=== PATIENT | female | born 1955 | race American Indian/Alaskan Native ===

== ENCOUNTER 2017-02-01 15:18 | Emergency (ER) | payer MEDICARE ==
[2017-02-01 16:09] LABS: Basophils % (Auto) 0.3 % (0.0-1.8); Eosinophils % (Auto) 0.5 % (0.0-4.3); Hematocrit 41.2 % (30.3-42.9); Hemoglobin 13.8 gm/dl (10.1-14.3); Mean Corpuscular HGB Conc 33 % (30-34); Mean Corpuscular Hemoglobin 32 pg (28-32); Mean Corpuscular Volume 95 fl (79-97); Platelet Count 261 K/mm3 (140-440); Red Blood Count 4.35 M/mm3 (3.65-5.03); Red Cell Distribution Width 13.7 % (13.2-15.2); White Blood Count 7.5 K/mm3 (4.5-11.0)
[2017-02-01 16:24] LABS: Creatine Kinase MB 1.7 ng/mL (0.0-4.0)
[2017-02-01 16:27] LABS: Alanine Aminotransferase 22 units/L (7-56); Albumin 4.4 g/dL (3.9-5); Albumin/Globulin Ratio 1.3 %; Alkaline Phosphatase 62 units/L (35-129); Anion Gap 18 mmol/L; Blood Urea Nitrogen 9 mg/dL (7-17); Calcium 9.7 mg/dL (8.4-10.2); Carbon Dioxide 25 mmol/L (22-30); Chloride 100.5 mmol/L (98-107); Creatine Kinase 127 units/L (30-135); Glucose 111 mg/dL (65-100); Lipase 28 units/L (13-60); Potassium 3.7 mmol/L (3.6-5.0); Sodium 140 mmol/L (137-145); Total Protein 7.8 g/dL (6.3-8.2)
[2017-02-01 17:08] LABS: Bilirubin,Urine NEG (Negative); Blood,Urine NEG (Negative); Ketones,Urine NEG (Negative); Leukocyte Esterase,Urine NEG (Negative); Mucus,Urine FEW /HPF; Nitrite,Urine NEG (Negative); Protein,Urine <15 mg/dL mg/dL (Negative); Urobilinogen,Urine < 2.0 mg/dL (<2.0)
[2017-02-01 20:37] LABS: Creatine Kinase MB 1.7 ng/mL (0.0-4.0)
[2017-02-01 20:38] LABS: Creatine Kinase 139 units/L (30-135)
[2017-02-01 22:40] VITALS: BP 183/88
--- NOTE | 2017-02-01 22:48 | XRay Report ---
FINAL REPORT PROCEDURE: XR CHEST ROUTINE 2V TECHNIQUE: PA and lateral chest radiographs were obtained. CPT 81348 HISTORY: sob/chest pain COMPARISON: No prior studies are available for comparison. FINDINGS: Heart: Normal. Mediastinum/Vessels: Normal. Lungs/Pleural space: Normal. Bony thorax: No acute osseous abnormality. Degenerative change. Other: IMPRESSION: No acute cardiopulmonary disease.
--- NOTE | 2017-02-01 23:28 | Emergency Department Report ---
HPI - General Chief Complaint: Abdominal Pain Time Seen by Provider: 02/01/17 23:15 - HPI HPI: 61-year-old female with a history of GERD presents to the ED complaining of epigastric bloating and pain in the past 2 weeks. Patient states pain was thought to days ago. Patient admits mild nausea and one episode of vomiting yesterday. Patient describes intermittent pain and states it's worse and when she lays down. Patient states she is unable to lay flat after she eats as she has acid to her throat. ED Past Medical Hx - Past Medical History Hx Hypertension: Yes (on Amlodipine and HCTZ) Hx GERD: Yes Hx Arthritis: Yes Hx Asthma: Yes (SEASONAL ) Additional medical history: fibro-myalgia - Surgical History Hx Cholecystectomy: Yes Hx Appendectomy: Yes (1971) - Social History Smoking Status: Never Smoker Substance Use Type: Alcohol - Medications Home Medications: Home Medications Medication Instructions Recorded Confirmed Last Taken Type Albuterol Sulfate [Albuterol 0.63% 1 spray INHALATION PRN PRN 03/01/14 05/06/15 1 Month Ago History NEBS] 1 puff Beclomethasone Dipropionat(Nf) 2 puff INHALATION DAILY 03/01/14 05/06/15 1 Month Ago History [Qvar 40MCG] 2 puff Loratadine [Claritin] 10 mg PO DAILY 11/04/14 05/06/15 1 Day Ago History 10 mg Aspirin [Aspirin BABY CHEW TAB] 81 mg PO QDAY #30 tab.chew 07/21/16 Unknown Rx Hydrochlorothiazide [HCTZ] 25 mg PO DAILY #30 tablet 07/21/16 Unknown Rx Ranolazine ER [Ranexa ER] 500 mg PO BID #60 tablet 07/21/16 Unknown Rx Simvastatin [Zocor TAB] 40 mg PO QHS #60 tablet 07/21/16 Unknown Rx amLODIPine [Norvasc] 10 mg PO DAILY #30 tab 07/21/16 Unknown Rx Pantoprazole [Protonix TAB] 20 mg PO QDAY #30 tablet. 02/02/17 Unknown Rx Ranitidine HCl [Heartburn Relief] 150 mg PO DAILY #30 tablet 02/02/17 Unknown Rx ED Review of Systems ROS: Stated complaint: ABD PAIN/SOB Other details as noted in HPI Constitutional: denies: chills, fever Eyes: denies: eye pain, eye discharge, vision change ENT: denies: ear pain, throat pain Respiratory: denies: cough, shortness of breath, wheezing Cardiovascular: denies: chest pain, palpitations Endocrine: no symptoms reported Gastrointestinal: abdominal pain (epigastric). denies: nausea, vomiting, diarrhea, constipation, hematemesis, hematochezia Genitourinary: denies: urgency, dysuria, discharge Musculoskeletal: denies: back pain, joint swelling, arthralgia Skin: denies: rash, lesions Neurological: denies: headache, weakness, paresthesias Psychiatric: denies: anxiety, depression Hematological/Lymphatic: denies: easy bleeding, easy bruising Physical Exam - Physical Exam Vital Signs: Vital Signs 02/01/17 02/01/17 15:29 22:39 Temperature 98 F 97.9 F Pulse Rate 72 54 L Respiratory 20 16 Rate Blood Pressure 198/104 Blood Pressure 183/88 [Left] O2 Sat by Pulse 99 99 Oximetry Physical Exam: GENERAL: Alert and oriented x3, no apparent distress, Normal Gait, atraumatic. HEAD: Head is normocephalic and a-traumatic. EYES: Extra ocular muscles are intact. Pupils are equal, round, and reactive to light and accommodation. EARS: symetrical, atraumatic, non tender, ear canal clear and moderate cerumen, tympanic membrance non inflamed. gross auditory nml bilaterally. NOSE: Nose symetrical, Nontender,Nares appeared normal. MOUTH:Mouth is well hydrated and without lesions. Tonsils nonerythematous or swollen, Uvula midline, Tongue not elevated. Mucous membranes are moist. Posterior pharynx clear, no exudate or lesions. Patent airways. NECK: Supple. Non edematous, No carotid bruits. No lymphadenopathy or thyromegaly. No C-spine tenderness LUNGS: Symetrical with respiration, No wheezing, no rales or crackles, CTAB. HEART: S1, S2 present, regular rate and rhythm without murmur, no rubs, no gallops. ABDOMEN: No organomegaly was noted,Positive bowel sounds, soft, and non- distended. . All tenderness with palpation of the epigastric region. NonTender to palpation on all other Quadrants, NO CVA tenderness. SKIN: Warm and dry, No lesions, No ulceration or induration present. ED Course Vital Signs 02/01/17 02/01/17 15:29 22:39 Temperature 98 F 97.9 F Pulse Rate 72 54 L Respiratory 20 16 Rate Blood Pressure 198/104 Blood Pressure 183/88 [Left] O2 Sat by Pulse 99 99 Oximetry ED Medical Decision Making - Lab Data Result diagrams: 02/01/17 15:40 02/01/17 15:40 - Medical Decision Making 61-year-old female presents with acid reflux flareup ED course: CBC,'s CMP, urinalysis, all ordered. All labs within normal limits. Cardiac enzymes negative. EKG normal sinus rhythm moderate voltage criteria for LVH. Discussed all findings with patient. Discussed follow-up with rn documentation for repeat EKG and assessment. Discussed to follow up with her [employer] Att[employer] Dr. Jovel. Discussed with patient her symptoms and need to take medications as prescribed. Discussed abstain from acid reach foods such as tomatoes and [place] Vital signs are normal she will take blood pressure medication upon returning home. Patient is in no acute distress. Critical care attestation.: If time is entered above; I have spent that time in minutes in the direct care of this critically ill patient, excluding procedure time. ED Disposition Clinical Impression: Acid reflux disease Qualifiers: Esophagitis presence: without esophagitis Qualified Code(s): K21.9 - Gastro- esophageal reflux disease without esophagitis Disposition: DISCHARGED TO HOME OR SELFCARE Is pt being admited?: No Does the pt Need Aspirin: No Condition: Stable Instructions: Diet for Ulcers and Gastritis (ED), Gastroesophageal Reflux Disease (ED), Abdominal Pain (ED) Additional Instructions: Follow-up with primary care physician. Taking medication as prescribed. Absent from acid which foods. For worsening symptoms return to ED. Prescriptions: Pantoprazole [Protonix TAB] 20 mg PO QDAY #30 tablet. Ranitidine HCl [Heartburn Relief] 150 mg PO DAILY #30 tablet Referrals: KHARI MARIANO NP-C [Primary Care Provider] - 3-5 Days Forms: Work/School Release Form(ED) Time of Disposition: 00:06
[2017-02-02] MEDS ORDERED: PEPCID PO ONE (00:04)
== END 2017-02-02 01:00 | disposition home or self-care (01) ==
LOC: ED 15:18
DX: K21.9 Gastro-esophageal reflux disease without esophagitis (principal); I10 Essential (primary) hypertension
CPT/HCPCS: 36415; 71020; 80053; 81001; 82550; 82553; 83690; 84484; 85025; 93005; 93010; 99284

== ENCOUNTER 2017-12-10 15:10 | Emergency (ER) | payer MEDICARE ==
--- NOTE | 2017-12-10 17:35 | Emergency Department Report ---
Chief Complaint: Dizziness Stated Complaint: HEADACHE Time Seen by Provider: 12/10/17 17:07 - HPI History of Present Illness: Patient is a 62-year-old [place] female who is been noncompliant last several weeks with her blood pressure medicines who is presenting with dizziness. Patient states that she has felt a vertigo like symptoms where she feels like the room is spinning with nausea and headache. His been present for approximately 3 days. Patient also states that she feels ataxic and uncoordinated when she walks as follows several times with no injury. - ROS Review of Systems: All systems are negative except for elements in HPI - Exam Vital Signs: Vital Signs 12/10/17 15:14 Temperature 97.8 F Pulse Rate 68 Blood Pressure 178/65 O2 Sat by Pulse 97 Oximetry Brief physical exam shows that the patient has equal strength in the arms or legs clear voice intact cranial nerves there is no pronator drift. Gait was not assessed. MSE screening note: Focused history and physical exam performed. Due to findings the following was ordered: ED Medical Decision Making - Medical Decision Making Patient be moved to the main ED for further evaluation of posterior stroke ED Disposition for MSE Condition: Stable Referrals: KHARI MARIANO NP-C [Primary Care Provider] - 3-5 Days - Assessment Assessment Interval: Baseline - Level of Consciousness 1a. Level of Consciousness: alert - LOC Questions 1b. LOC Questions: answers correctly - LOC Command 1c. LOC Commands: performs tasks correctly - Best Gaze 2. Best Gaze: normal - Visual 3. Visual: no visual loss - Facial Palsy 4. Facial Palsy: normal symmetrical movement - Motor Arm 5b. Motor Arm Right: no drift 5a. Motor Arm Left: no drift - Motor Leg 6a. Motor Leg Left: no drift 6b. Motor Leg Right: no drift - Limb Ataxia 7. Limb Ataxia: absent - Sensory 8. Sensory: normal - Best Language 9. Best Language: no aphasia - Dysarthria 10. Dysarthria: normal - Extinction and Inattention 11. Extinction/Inattention: no abnormality - Scoring Total Score: 0 Stroke Severity: No Stroke Symptoms
[2017-12-10 17:58] LABS: Basophils % (Auto) 0.5 % (0.0-1.8); Eosinophils # (Auto) 0.1 K/mm3 (0.0-0.4); Eosinophils % (Auto) 0.9 % (0.0-4.3); Hemoglobin 14.3 gm/dl (10.1-14.3); Lymphocytes # (Auto) 2.2 K/mm3 (1.2-5.4); Mean Corpuscular HGB Conc 34 % (30-34); Mean Corpuscular Hemoglobin 32 pg (28-32); Mean Corpuscular Volume 95 fl (79-97); Monocytes # (Auto) 0.6 K/mm3 (0.0-0.8); Monocytes % (Auto) 9.2 % (0.0-7.3); Platelet Count 270 K/mm3 (140-440); Red Blood Count 4.44 M/mm3 (3.65-5.03); Red Cell Distribution Width 13.4 % (13.2-15.2)
[2017-12-10 18:07] LABS: INR 0.86 (0.87-1.13)
[2017-12-10 18:08] LABS: Partial Thromboplastin Time 27.2 Sec. (24.2-36.6); Thrombin Time 16.5 Sec. (15.1-19.6)
[2017-12-10 18:13] LABS: Creatine Kinase MB 1.1 ng/mL (0.0-4.0)
[2017-12-10 18:15] LABS: BUN/Creatinine Ratio 15; Blood Urea Nitrogen 9 mg/dL (7-17); Calcium 9.5 mg/dL (8.4-10.2); Hemolysis Index 9
--- NOTE | 2017-12-10 20:35 | Cat Scan Report ---
FINAL REPORT PROCEDURE: CT head without contrast. TECHNIQUE: Computerized tomography of the head was performed without contrast material. HISTORY: Stroke symptoms. COMPARISON: CT head 11/18/2015. FINDINGS: The ventricles are normal in size. The lang matter and white matter appear normal. There are no mass lesions. There is no intracranial hemorrhage. The calvarium appears intact. The mastoid air cells and visualized paranasal sinuses are clear. IMPRESSION: Normal study.
--- NOTE | 2017-12-10 21:00 | Cat Scan Report ---
FINAL REPORT PROCEDURE: CT angiogram head with contrast. TECHNIQUE: Computerized tomographic angiography of the head was performed after the IV injection of iodinated nonionic contrast including image processing. The image data was postprocessed using 2-dimensional multiplanar reformatted (MPR) and 3-dimensional (MIP and/or volume rendered) techniques. HISTORY: Stroke symptoms. COMPARISON: No prior studies are available for comparison. FINDINGS: Both distal internal carotid arteries are patent. Both anterior cerebral arteries are patent. The anterior communicating artery is patent. Both middle cerebral arteries are patent. The posterior communicating arteries are not visible. Both distal vertebral arteries are patent. The posterior inferior cerebellar arteries are not visible. The basilar artery is patent. Both anterior inferior cerebellar arteries are large and probably supply both the [place]. Both superior cerebellar and both posterior cerebral arteries are patent. There are no signs of aneurysm disease. There is no evidence of a vasculitis. The ventricles are normal in size. There are no mass lesions. There are no signs of abnormal contrast enhancement. The calvarium appears intact. IMPRESSION: Normal study.
[2017-12-10 21:30] VITALS: BP 166/78
[2017-12-10] MEDS ORDERED: ATIVAN IV ONE (22:56)
--- NOTE | 2017-12-11 00:15 | Cat Scan Report ---
FINAL REPORT EXAM: CT ANGIO NECK HISTORY: stroke sx TECHNIQUE: A CT angiogram was obtained of the neck vessels following the intravenous injection of 100 cc of Omnipaque 350. MIP sagittal coronal reconstructions were reviewed. FINDINGS: Both common carotid arteries are widely patent with normal bifurcation into the internal and external carotid arteries bilaterally. There is minimal calcified plaque in both proximal internal carotid arteries. Both vertebral arteries are widely patent also. There is no evidence of arterial thrombosis or dissection. The lung apices are clear. There is no evidence of adenopathy. The thyroid gland reveals several low-attenuation foci bilaterally. The airway appears normal. The skeletal structures reveal arthritic changes in the cervical spine. IMPRESSION: No evidence of arterial stenosis, thrombosis or dissection as described. No acute process identified in the neck.
--- NOTE | 2017-12-11 00:29 | Emergency Department Report ---
ED Dizziness HPI - General Chief Complaint: Dizziness Stated Complaint: HEADACHE Time Seen by Provider: 12/10/17 17:07 Source: patient Mode of arrival: Ambulatory Limitations: No Limitations - History of Present Illness Initial Comments: Patient was seen in fast track for dizzy spells she presents to the main ER blood pressure is elevated 173 systolic she states she's been noncompliant with her other medicine. She is relatingsome dizzy spells which are described as room spinning no loss consciousness no falls no head injury no neck pain or back pain or chest pain no abdominal pain no speech or visual complaints here for evaluation of vertigo. An elevated blood pressure. Patient ambulates in the room without difficulty no ataxia is appreciated she does have some horizontal nystagmus she was evaluated for vertigo MD Complaint: dizziness, other (vertigo) -: Gradual Description: "room spinning" Severity: mild, moderate Worsens With: movement, position - Related Data Home Medications Medication Instructions Recorded Confirmed Last Taken Albuterol Sulfate [Albuterol 0.63% 1 spray INHALATION PRN PRN 03/01/14 05/06/15 1 Month Ago NEBS] ~06/19/16 1 puff Beclomethasone Dipropionat(Nf) 2 puff INHALATION DAILY 03/01/14 05/06/15 1 Month Ago [Qvar 40MCG] ~06/19/16 2 puff Loratadine [Claritin] 10 mg PO DAILY 11/04/14 05/06/15 1 Day Ago ~07/18/16 10 mg Previous Rx's Medication Instructions Recorded Last Taken Type Aspirin [Aspirin BABY CHEW TAB] 81 mg PO QDAY #30 tab.chew 07/21/16 Unknown Rx Hydrochlorothiazide [HCTZ] 25 mg PO DAILY #30 tablet 07/21/16 Unknown Rx Ranolazine ER [Ranexa ER] 500 mg PO BID #60 tablet 07/21/16 Unknown Rx Simvastatin [Zocor TAB] 40 mg PO QHS #60 tablet 07/21/16 Unknown Rx amLODIPine [Norvasc] 10 mg PO DAILY #30 tab 07/21/16 Unknown Rx Pantoprazole [Protonix TAB] 20 mg PO QDAY #30 tablet. 02/02/17 Unknown Rx Ranitidine HCl [Heartburn Relief] 150 mg PO DAILY #30 tablet 02/02/17 Unknown Rx Hydrochlorothiazide [Hctz] 12.5 mg PO QDAY #15 capsule 12/11/17 Unknown Rx Meclizine [Antivert] 25 mg PO TID PRN #15 tablet 12/11/17 Unknown Rx Allergies Allergy/AdvReac Type Severity Reaction Status Date / Time No Known Allergies Allergy Verified 11/18/13 16:36 ED Review of Systems ROS: Stated complaint: HEADACHE Other details as noted in HPI Comment: All other systems reviewed and negative Constitutional: denies: diaphoresis, fever, malaise Eyes: denies: eye discharge, vision change ENT: denies: dental pain, hearing loss, epistaxis Respiratory: denies: cough, orthopnea, shortness of breath, SOB with exertion, SOB at rest, stridor Cardiovascular: denies: chest pain, palpitations, dyspnea on exertion, orthopnea , edema, syncope, paroxysmal nocturnal dyspnea Endocrine: denies: excessive sweating, flushing Gastrointestinal: denies: abdominal pain, nausea, vomiting, diarrhea, constipation, hematemesis, melena, hematochezia Genitourinary: denies: dysuria, hematuria, discharge, abnormal menses, dyspareunia Musculoskeletal: denies: joint swelling, arthralgia Skin: denies: change in color, change in hair/nails, pruritus Neurological: vertigo. denies: headache, weakness, numbness, paresthesias, confusion, abnormal gait Psychiatric: denies: auditory hallucinations, visual hallucinations Hematological/Lymphatic: denies: easy bruising, swollen glands ED Past Medical Hx - Past Medical History Hx Hypertension: Yes (on Amlodipine and HCTZ) Hx GERD: Yes Hx Arthritis: Yes Hx Asthma: Yes (SEASONAL ) Additional medical history: fibro-myalgia - Surgical History Hx Cholecystectomy: Yes Hx Appendectomy: Yes (1971) - Social History Smoking Status: Never Smoker Substance Use Type: None - Medications Home Medications: Home Medications Medication Instructions Recorded Confirmed Last Taken Type Albuterol Sulfate [Albuterol 0.63% 1 spray INHALATION PRN PRN 03/01/14 05/06/15 1 Month Ago History NEBS] ~06/19/16 1 puff Beclomethasone Dipropionat(Nf) 2 puff INHALATION DAILY 03/01/14 05/06/15 1 Month Ago History [Qvar 40MCG] ~06/19/16 2 puff Loratadine [Claritin] 10 mg PO DAILY 11/04/14 05/06/15 1 Day Ago History ~07/18/16 10 mg Aspirin [Aspirin BABY CHEW TAB] 81 mg PO QDAY #30 tab.chew 07/21/16 Unknown Rx Hydrochlorothiazide [HCTZ] 25 mg PO DAILY #30 tablet 07/21/16 Unknown Rx Ranolazine ER [Ranexa ER] 500 mg PO BID #60 tablet 07/21/16 Unknown Rx Simvastatin [Zocor TAB] 40 mg PO QHS #60 tablet 07/21/16 Unknown Rx amLODIPine [Norvasc] 10 mg PO DAILY #30 tab 07/21/16 Unknown Rx Pantoprazole [Protonix TAB] 20 mg PO QDAY #30 tablet. 02/02/17 Unknown Rx Ranitidine HCl [Heartburn Relief] 150 mg PO DAILY #30 tablet 02/02/17 Unknown Rx Hydrochlorothiazide [Hctz] 12.5 mg PO QDAY #15 capsule 12/11/17 Unknown Rx Meclizine [Antivert] 25 mg PO TID PRN #15 tablet 12/11/17 Unknown Rx ED Physical Exam - General Limitations: No Limitations General appearance: alert, anxious - Head Head exam: Present: atraumatic, normocephalic - Eye Eye exam: Present: PERRL, EOMI, nystagmus - ENT ENT exam: Present: normal exam, normal orophraynx - Neck Neck exam: Present: normal inspection. Absent: tenderness, meningismus - Respiratory Respiratory exam: Present: normal lung sounds bilaterally. Absent: respiratory distress, wheezes, rales, rhonchi, stridor, chest wall tenderness, accessory muscle use, decreased breath sounds, prolonged expiratory - Cardiovascular Cardiovascular Exam: Present: regular rate, normal rhythm, normal heart sounds. Absent: rubs, gallop - GI/Abdominal GI/Abdominal exam: Present: soft. Absent: tenderness, guarding, rebound, rigid , organomegaly, mass, bruit, pulsatile mass - Extremities Exam Extremities exam: Present: normal inspection, normal capillary refill. Absent: tenderness, pedal edema, joint swelling, calf tenderness - Back Exam Back exam: Present: normal inspection. Absent: CVA tenderness (R), CVA tenderness (L), muscle spasm, paraspinal tenderness, vertebral tenderness - Neurological Exam Neurological exam: Present: alert, oriented X3, CN II-XII intact, normal gait, other (normal finger to nose normal [id number] no weakness 5 over 5 strength throughout normal gait). Absent: motor sensory deficit - Psychiatric Psychiatric exam: Present: anxious. Absent: homicidal ideation, suicidal ideation - Skin Skin exam: Absent: cyanosis, diaphoretic, erythema, urticaria, vesicles, petechiae, pallor ED Course Vital Signs 12/10/17 12/10/17 12/10/17 15:14 17:47 17:52 Temperature 97.8 F Pulse Rate 68 57 L Respiratory Rate Blood Pressure 178/65 Blood Pressure [Left] O2 Sat by Pulse 97 83 L Oximetry 12/10/17 12/10/17 12/10/17 18:14 19:10 21:29 Temperature 98.2 F 98.2 F Pulse Rate 58 L 90 Respiratory 18 18 18 Rate Blood Pressure Blood Pressure 161/79 166/78 [Left] O2 Sat by Pulse 100 98 99 Oximetry 12/10/17 21:31 Temperature Pulse Rate 55 L Respiratory Rate Blood Pressure Blood Pressure [Left] O2 Sat by Pulse Oximetry ED Medical Decision Making - Lab Data Result diagrams: 12/10/17 17:43 12/10/17 17:43 - EKG Data -: EKG Interpreted by [facility] EKG shows normal: sinus rhythm - EKG Data Interpretation: other (no acute ischemic change) - Radiology Data Radiology results: report reviewed - Medical Decision Making Patient had a head CT this is read as unremarkable by radiologist also had a CT angiogram as well as a neck angiogram these were also unremarkable per the radiologist. Symptoms are likely consistent with peripheral vertigo she has no focal neuro findings at this time with no cerebellar findings with a normal gait given the negative imaging imaging studies we will discharge her for follow -up with neurology she is to return immediately if new alarming symptoms we'll try Antivert she is stable at this time for outpatient follow-up we will restart a blood pressure medicine as well. no ssx endorgan damage adn stableoutpt f/u. Critical care attestation.: If time is entered above; I have spent that time in minutes in the direct care of this critically ill patient, excluding procedure time. ED Disposition Clinical Impression: Hypertension, Vertigo Disposition: DC-01 TO HOME OR SELFCARE Is pt being admited?: No Condition: Stable Instructions: Hypertension (ED), Vertigo (ED), Dizziness (ED) Additional Instructions: See the doctor listed or irregular talk to return if new or alarming symptoms or call 911 Prescriptions: Hydrochlorothiazide [Hctz] 12.5 mg PO QDAY #15 capsule Meclizine [Antivert] 25 mg PO TID PRN #15 tablet PRN Reason: Vertigo Referrals: KHARI MARIANO IMPORT COORDINATOR-C [Primary Care Provider] - 3-5 Days Time of Disposition: 00:42
== END 2017-12-11 01:01 | disposition home or self-care (01) ==
LOC: ED 15:10
DX: I10 Essential (primary) hypertension (principal); R42 Dizziness and giddiness; K21.9 Gastro-esophageal reflux disease without esophagitis; J45.909 Unspecified asthma, uncomplicated; Z90.49 Acquired absence of other specified parts of digestive tract; M79.7 Fibromyalgia; Z79.82 Long term (current) use of aspirin
CPT/HCPCS: 36415; 70450; 70496; 70498; 80048; 82550; 82553; 84484; 85025; 85610; 85670; 85730; 93005; 93010; 99284; Q9967

== ENCOUNTER 2018-01-17 15:45 | Emergency (ER) | payer MEDICARE ==
--- NOTE | 2018-01-17 16:52 | Emergency Department Report ---
Chief Complaint: Dyspnea/Respdistress Stated Complaint: WILSON/ PURA/ ABD PAIN Time Seen by Provider: 01/17/18 16:45 - HPI History of Present Illness: pt has cc of 1 week of sob and wheezing. pt states she has hx of " season asthma :" no cp or arm pain or jaw pain or left arm pain or leg pain or swelling - ROS Review of Systems: pt denies fever, cp leg pain h/a cva or tia like symptoms - Exam Vital Signs: Vital Signs 01/17/18 15:49 Temperature 98.3 F Pulse Rate 74 Respiratory 21 Rate Blood Pressure 155/80 O2 Sat by Pulse 94 Oximetry Physical Exam: alert and oriented times 3, nih=0 perrla 3 mm bl , normal gaze, eoms-i normal speech and gait w/o neglect s1 s2 nrr lungs- b/l wheezing, all zaldivar bl abd = nt nr normal bowel sounds extrem= neg homans bl MSE screening note: Focused history and physical exam performed. Due to findings the following was ordered: cxr labs as pt was wheezing ED Disposition for MSE Condition: Stable Referrals: KHARI MARIANO [Other] - 3-5 Days
[2018-01-17] MEDS ORDERED: ATROVENT IH ONE (17:10)
[2018-01-17] MEDS ORDERED: DELTASONE PO ONE (17:10)
[2018-01-17] MEDS ORDERED: PROVENTIL IH ONE (17:10)
--- NOTE | 2018-01-17 17:29 | Emergency Department Report ---
ED Shortness of Breath HPI - General Chief Complaint: Dyspnea/Respdistress Stated Complaint: WILSON/ PURA/ ABD PAIN Time Seen by Provider: 01/17/18 16:45 Source: patient Mode of arrival: Ambulatory Limitations: No Limitations - History of Present Illness Initial Comments: pt has cc of 1 week of sob and wheezing. pt states she has hx of " season asthma :"no cp or arm pain or jaw pain or left arm pain or leg pain or swelling . Denies any fever or chills. Reports she started with nasal drainage and congestion and postnasal drip. She says she usually takes Claritin but she has not taken since symptoms started. Patient does have primary care physician. She does have albuterol nebulizer and inhaler at home. She has not used her inhaler and one year and she has not used her nebulizer to year. She says that she usually gets asthma flare when the pollen is bad. She said that she also has a slight headache frontally that comes and goes that is relieved with Tylenol. No headache at present. Patient has a history of hypertension that is controlled, arthritis, acid reflux, seasonal allergies, asthma, fibromyalgia. History of gallbladder removal and appendectomy. Denies any history of congestive heart failure. Negative smoker. Positive dry cough. MD Complaint: shortness of breath, cough, "asthma attack" Onset/Timin -: days(s) Pain Scale: 0 Known History Of: asthma, other (GERD, hyperlipidemia, seasonal allergies, hypertension) Context: recent URI, occured during exertion, allergen exposure Associated Symptoms: cough Treatments Prior to Arrival: bronchodilator - Related Data Home Oxygen Therapy: No Home Medications Medication Instructions Recorded Confirmed Last Taken Albuterol Sulfate [Albuterol 0.63% 1 spray INHALATION PRN PRN 03/01/14 05/06/15 1 Month Ago NEBS] ~06/19/16 1 puff Beclomethasone Dipropionat(Nf) 2 puff INHALATION DAILY 03/01/14 05/06/15 1 Month Ago [Qvar 40MCG] ~06/19/16 2 puff Loratadine [Claritin] 10 mg PO DAILY 11/04/14 05/06/15 1 Day Ago ~07/18/16 10 mg Previous Rx's Medication Instructions Recorded Last Taken Type Aspirin [Aspirin BABY CHEW TAB] 81 mg PO QDAY #30 tab.chew 07/21/16 Unknown Rx Hydrochlorothiazide [HCTZ] 25 mg PO DAILY #30 tablet 07/21/16 Unknown Rx Ranolazine ER [Ranexa ER] 500 mg PO BID #60 tablet 07/21/16 Unknown Rx Simvastatin [Zocor TAB] 40 mg PO QHS #60 tablet 07/21/16 Unknown Rx amLODIPine [Norvasc] 10 mg PO DAILY #30 tab 07/21/16 Unknown Rx Pantoprazole [Protonix TAB] 20 mg PO QDAY #30 tablet. 02/02/17 Unknown Rx Ranitidine HCl [Heartburn Relief] 150 mg PO DAILY #30 tablet 02/02/17 Unknown Rx Hydrochlorothiazide [Hctz] 12.5 mg PO QDAY #15 capsule 12/11/17 Unknown Rx Meclizine [Antivert] 25 mg PO TID PRN #15 tablet 12/11/17 Unknown Rx Cetirizine HCl [ZyrTEC] 10 mg PO QAM 14 Days #14 capsule 01/17/18 Unknown Rx Doxycycline [Vibramycin CAP] 100 mg PO Q12HR 10 Days #20 capsule 01/17/18 Unknown Rx Fluticasone [Flonase] 1 spray NS QDAY 14 Days #1 bottle 01/17/18 Unknown Rx Prednisone 50 mg PO QAM 5 Days #5 tablet 01/17/18 Unknown Rx Allergies Allergy/AdvReac Type Severity Reaction Status Date / Time No Known Allergies Allergy Verified 11/18/13 16:36 ED Review of Systems ROS: Stated complaint: WILSON/ PURA/ ABD PAIN Other details as noted in HPI Comment: All other systems reviewed and negative Constitutional: no symptoms reported Eyes: denies: eye pain, vision change ENT: congestion, other. denies: ear pain, throat pain, dental pain, hearing loss, epistaxis Respiratory: cough, shortness of breath, SOB with exertion, wheezing. denies: orthopnea, SOB at rest, stridor Cardiovascular: denies: chest pain, palpitations, dyspnea on exertion, orthopnea , edema, syncope, paroxysmal nocturnal dyspnea Gastrointestinal: denies: abdominal pain, nausea, vomiting, diarrhea, constipation, hematemesis, melena, hematochezia Genitourinary: denies: urgency, dysuria, frequency, hematuria, discharge, abnormal menses, dyspareunia Musculoskeletal: denies: back pain, joint swelling, arthralgia, myalgia Skin: denies: rash Neurological: denies: headache, weakness, numbness, paresthesias, confusion, abnormal gait, vertigo Psychiatric: denies: anxiety ED Past Medical Hx - Past Medical History Previous Medical History?: Yes Hx Hypertension: Yes (on Amlodipine and HCTZ) Hx GERD: Yes Hx Arthritis: Yes Hx Asthma: Yes (SEASONAL ) Additional medical history: fibro-myalgia - Surgical History Past Surgical History?: Yes Hx Cholecystectomy: Yes Hx Appendectomy: Yes (1971) - Family History Family history: hypertension - Social History Smoking Status: Never Smoker Substance Use Type: Alcohol - Medications Home Medications: Home Medications Medication Instructions Recorded Confirmed Last Taken Type Albuterol Sulfate [Albuterol 0.63% 1 spray INHALATION PRN PRN 03/01/14 05/06/15 1 Month Ago History NEBS] ~06/19/16 1 puff Beclomethasone Dipropionat(Nf) 2 puff INHALATION DAILY 03/01/14 05/06/15 1 Month Ago History [Qvar 40MCG] ~06/19/16 2 puff Loratadine [Claritin] 10 mg PO DAILY 11/04/14 05/06/15 1 Day Ago History ~07/18/16 10 mg Aspirin [Aspirin BABY CHEW TAB] 81 mg PO QDAY #30 tab.chew 07/21/16 Unknown Rx Hydrochlorothiazide [HCTZ] 25 mg PO DAILY #30 tablet 07/21/16 Unknown Rx Ranolazine ER [Ranexa ER] 500 mg PO BID #60 tablet 07/21/16 Unknown Rx Simvastatin [Zocor TAB] 40 mg PO QHS #60 tablet 07/21/16 Unknown Rx amLODIPine [Norvasc] 10 mg PO DAILY #30 tab 07/21/16 Unknown Rx Pantoprazole [Protonix TAB] 20 mg PO QDAY #30 tablet. 02/02/17 Unknown Rx Ranitidine HCl [Heartburn Relief] 150 mg PO DAILY #30 tablet 02/02/17 Unknown Rx Hydrochlorothiazide [Hctz] 12.5 mg PO QDAY #15 capsule 12/11/17 Unknown Rx Meclizine [Antivert] 25 mg PO TID PRN #15 tablet 12/11/17 Unknown Rx Cetirizine HCl [ZyrTEC] 10 mg PO QAM 14 Days #14 capsule 01/17/18 Unknown Rx Doxycycline [Vibramycin CAP] 100 mg PO Q12HR 10 Days #20 capsule 01/17/18 Unknown Rx Fluticasone [Flonase] 1 spray NS QDAY 14 Days #1 bottle 01/17/18 Unknown Rx Prednisone 50 mg PO QAM 5 Days #5 tablet 01/17/18 Unknown Rx ED Physical Exam - General Limitations: No Limitations General appearance: alert, in no apparent distress - Head Head exam: Present: atraumatic, normocephalic, normal inspection, other ( normocephalic atraumatic) - Eye Eye exam: Present: normal appearance, PERRL, EOMI, nystagmus. Absent: scleral icterus, conjunctival injection, periorbital swelling, periorbital tenderness Pupils: Present: normal accommodation - ENT ENT exam: Present: normal orophraynx, mucous membranes moist, normal external ear exam (nasal mucosa congested with clear drainage and erythema.), other ( maxillary sinus and frontal sinuses nontender to palpate). Absent: TM's normal bilaterally (bilateral TM congested without erythema) - Neck Neck exam: Present: normal inspection, tenderness, full ROM, other (no C-spine tenderness). Absent: meningismus, lymphadenopathy - Respiratory Respiratory exam: Present: wheezes, other (dry cough). Absent: normal lung sounds bilaterally, respiratory distress, rales, rhonchi, stridor, chest wall tenderness, accessory muscle use, decreased breath sounds, prolonged expiratory - Cardiovascular Cardiovascular Exam: Present: regular rate, normal rhythm, normal heart sounds. Absent: systolic murmur, diastolic murmur, JVD - GI/Abdominal GI/Abdominal exam: Present: soft, normal bowel sounds. Absent: distended, tenderness, guarding, rebound, rigid, organomegaly, mass, bruit, pulsatile mass , hernia - Extremities Exam Extremities exam: Present: normal inspection, full ROM, normal capillary refill , other (a clubbing, cyanosis or edema. Positive pulses plus extremities and no neurovascular compromise). Absent: tenderness, pedal edema, calf tenderness - Back Exam Back exam: Present: normal inspection, full ROM, other (ambulates without any difficulties). Absent: tenderness, CVA tenderness (R), CVA tenderness (L), muscle spasm, paraspinal tenderness, vertebral tenderness, rash noted - Neurological Exam Neurological exam: Present: alert, oriented X3, normal gait, reflexes normal - Psychiatric Psychiatric exam: Present: normal affect, normal mood - Skin Skin exam: Present: warm, dry, intact, normal color. Absent: rash ED Course Vital Signs 01/17/18 01/17/18 01/17/18 15:49 17:30 17:40 Temperature 98.3 F Pulse Rate 74 Pulse Rate [ 66 68 Anterior Bilateral] Respiratory 21 Rate Respiratory 18 18 Rate [Anterior Bilateral] Blood Pressure 155/80 O2 Sat by Pulse 94 Oximetry 01/17/18 18:07 Temperature Pulse Rate 83 Pulse Rate [ Anterior Bilateral] Respiratory 19 Rate Respiratory Rate [Anterior Bilateral] Blood Pressure O2 Sat by Pulse 97 Oximetry Vital Signs 01/17/18 01/17/18 01/17/18 15:49 17:30 17:40 Temperature 98.3 F Pulse Rate 74 Pulse Rate [ 66 68 Anterior Bilateral] Respiratory 21 Rate Respiratory 18 18 Rate [Anterior Bilateral] Blood Pressure 155/80 O2 Sat by Pulse 94 Oximetry 01/17/18 18:07 Temperature Pulse Rate 83 Pulse Rate [ Anterior Bilateral] Respiratory 19 Rate Respiratory Rate [Anterior Bilateral] Blood Pressure O2 Sat by Pulse 97 Oximetry - Reevaluation(s) Reevaluation #1: 01/17/18 18:22 Patient received albuterol 2.5 mg, Atrovent 0.5 mg nebulizer, prednisone 60 mg by mouth. On reevaluation, lungs sounds are clear and patient says she feels a lot better. ED Medical Decision Making - Lab Data Result diagrams: 01/17/18 17:22 01/17/18 17:22 Lab Results 01/17/18 01/17/18 01/17/18 Range/Units 17:22 17:22 17:22 WBC 5.1 (4.5-11.0) K/mm3 RBC 4.52 (3.65-5.03) M/mm3 Hgb 14.4 H (10.1-14.3) gm/dl Hct 42.9 (30.3-42.9) % MCV 95 (79-97) fl MCH 32 (28-32) pg MCHC 34 (30-34) % RDW 13.4 (13.2-15.2) % Plt Count 266 (140-440) K/mm3 Lymph % (Auto) 38.2 H (13.4-35.0) % Barren % (Auto) 9.8 H (0.0-7.3) % Eos % (Auto) 1.3 (0.0-4.3) % Baso % (Auto) 0.4 (0.0-1.8) % Lymph # 1.9 (1.2-5.4) K/mm3 Barren # 0.5 (0.0-0.8) K/mm3 Eos # 0.1 (0.0-0.4) K/mm3 Baso # 0.0 (0.0-0.1) K/mm3 Seg Neutrophils % 50.3 (40.0-70.0) % Seg Neutrophils # 2.6 (1.8-7.7) K/mm3 POC ABG pH (7.35-7.45) POC ABG pCO2 (35-45) POC ABG pO2 (80-105) POC ABG HCO3 POC ABG Total CO2 POC ABG O2 Sat POC ABG Base Excess FiO2 % Sodium 139 (137-145) mmol/L Potassium 4.2 (3.6-5.0) mmol/L Chloride 98.9 (98-107) mmol/L Carbon Dioxide 28 (22-30) mmol/L Anion Gap 16 mmol/L BUN 5 L (7-17) mg/dL Creatinine 0.6 L (0.7-1.2) mg/dL Estimated GFR > 60 ml/min BUN/Creatinine Ratio 8 % Glucose 102 H (65-100) mg/dL Calcium 10.0 (8.4-10.2) mg/dL Total Bilirubin 0.70 (0.1-1.2) mg/dL AST 23 (5-40) units/L ALT 23 (7-56) units/L Alkaline Phosphatase 65 (35-129) units/L Total Creatine Kinase 118 (30-135) units/L CK-MB (CK-2) < 1.0 (0.0-4.0) ng/mL CK-MB (CK-2) Rel Index 0.8 (0-4) Troponin T < 0.010 (0.00-0.029) ng/mL NT-Pro-B Natriuret Pep 19.60 (0-900) pg/mL Total Protein 8.6 H (6.3-8.2) g/dL Albumin 4.0 (3.9-5) g/dL Albumin/Globulin Ratio 0.9 % 01/17/18 Range/Units 17:52 WBC (4.5-11.0) K/mm3 RBC (3.65-5.03) M/mm3 Hgb (10.1-14.3) gm/dl Hct (30.3-42.9) % MCV (79-97) fl MCH (28-32) pg MCHC (30-34) % RDW (13.2-15.2) % Plt Count (140-440) K/mm3 Lymph % (Auto) (13.4-35.0) % Barren % (Auto) (0.0-7.3) % Eos % (Auto) (0.0-4.3) % Baso % (Auto) (0.0-1.8) % Lymph # (1.2-5.4) K/mm3 Barren # (0.0-0.8) K/mm3 Eos # (0.0-0.4) K/mm3 Baso # (0.0-0.1) K/mm3 Seg Neutrophils % (40.0-70.0) % Seg Neutrophils # (1.8-7.7) K/mm3 POC ABG pH 7.437 (7.35-7.45) POC ABG pCO2 37.9 (35-45) POC ABG pO2 77 L (80-105) POC ABG HCO3 25.6 POC ABG Total CO2 27 POC ABG O2 Sat 96 POC ABG Base Excess 1 FiO2 21 % Sodium (137-145) mmol/L Potassium (3.6-5.0) mmol/L Chloride (98-107) mmol/L Carbon Dioxide (22-30) mmol/L Anion Gap mmol/L BUN (7-17) mg/dL Creatinine (0.7-1.2) mg/dL Estimated GFR ml/min BUN/Creatinine Ratio % Glucose (65-100) mg/dL Calcium (8.4-10.2) mg/dL Total Bilirubin (0.1-1.2) mg/dL AST (5-40) units/L ALT (7-56) units/L Alkaline Phosphatase (35-129) units/L Total Creatine Kinase (30-135) units/L CK-MB (CK-2) (0.0-4.0) ng/mL CK-MB (CK-2) Rel Index (0-4) Troponin T (0.00-0.029) ng/mL NT-Pro-B Natriuret Pep (0-900) pg/mL Total Protein (6.3-8.2) g/dL Albumin (3.9-5) g/dL Albumin/Globulin Ratio % - EKG Data -: EKG Interpreted by Me (attending physician.) EKG shows normal: sinus rhythm (sinus rhythm at 62 bpm) Rate: normal - EKG Data Interpretation: no acute changes - Radiology Data Radiology results: image reviewed interpreted by me: X-ray images are reviewed by myself and attending physician in the emergency room and patient without any acute cardiopulmonary findings. awaiting radiology report. - Medical Decision Making ED course: Mild intermittent asthma exacerbation, upper respiratory tract infection with cough and congestion. Physical findings for wheeze into lung zaldivar which patient receive albuterol 2.5 mg, Atrovent 0.5 mg and prednisone 60 mg by mouth and a further evaluation, patient lung sounds are clear and she says she feels a lot better. CBC stable, CMP stable, blood gas stable, BNP within normal limits, CK, CK-MB and troponin are within normal limits. Chest x- ray images reviewed and no acute cardiopulmonary abnormalities. Still awaiting radiology reports. I discussed diagnosis, treatment plan, follow-up with patient and she voiced understanding. I also discussed laboratory and radiology report with patient and she discussed understanding. Please refer to radiology section for chest x-ray results and laboratory section for details on laboratory results. Patient is stable and discharged home to continue her home albuterol, prescription for Zyrtec, Flonase, prednisone and doxycycline per attending physician. Patient to follow-up with her primary care physician on Saturday Critical care attestation.: If time is entered above; I have spent that time in minutes in the direct care of this critically ill patient, excluding procedure time. ED Disposition Clinical Impression: URI with cough and congestion Asthma attack Qualifiers: Asthma severity: mild Asthma persistence: intermittent Qualified Code(s): J45.21 - Mild intermittent asthma with (acute) exacerbation Disposition: TO HOME OR SELFCARE Is pt being admited?: No Does the pt Need Aspirin: No Condition: Stable Instructions: Asthma (ED), Upper Respiratory Infection (ED), Acute Cough (ED) Additional Instructions: Please increase her fluid intake Follow up with your primary care physician in 01/20/2018 Take all medication as prescribed If your symptoms worsen, return to the emergency room otherwise follow-up with primary care Prescriptions: Cetirizine HCl [ZyrTEC] 10 mg PO QAM 14 Days #14 capsule Doxycycline [Vibramycin CAP] 100 mg PO Q12HR 10 Days #20 capsule Fluticasone [Flonase] 1 spray NS QDAY 14 Days #1 bottle Prednisone 50 mg PO QAM 5 Days #5 tablet Referrals: KHARI MARIANO [Other] - 01/20/18 Forms: Work/School Release Form(ED)
[2018-01-17 17:41] LABS: Basophils % (Auto) 0.4 % (0.0-1.8); Eosinophils # (Auto) 0.1 K/mm3 (0.0-0.4); Eosinophils % (Auto) 1.3 % (0.0-4.3); Hematocrit 42.9 % (30.3-42.9); Hemoglobin 14.4 gm/dl (10.1-14.3); Lymphocytes # (Auto) 1.9 K/mm3 (1.2-5.4); Lymphocytes % (Auto) 38.2 % (13.4-35.0); Mean Corpuscular HGB Conc 34 % (30-34); Mean Corpuscular Hemoglobin 32 pg (28-32); Mean Corpuscular Volume 95 fl (79-97); Monocytes # (Auto) 0.5 K/mm3 (0.0-0.8); Monocytes % (Auto) 9.8 % (0.0-7.3); Platelet Count 266 K/mm3 (140-440); Red Blood Count 4.52 M/mm3 (3.65-5.03); Red Cell Distribution Width 13.4 % (13.2-15.2)
[2018-01-17 17:49] LABS: Alanine Aminotransferase 23 units/L (7-56); BUN/Creatinine Ratio 8; Blood Urea Nitrogen 5 mg/dL (7-17); Hemolysis Index 18
[2018-01-17 18:00] LABS: Creatine Kinase MB < 1.0 ng/mL (0.0-4.0)
[2018-01-17 20:11] VITALS: BP 156/74
--- NOTE | 2018-01-17 22:00 | XRay Report ---
FINAL REPORT PROCEDURE: XR CHEST ROUTINE 2V TECHNIQUE: PA and lateral chest radiographs were obtained. CPT 91443 HISTORY: Dyspnea COMPARISON: February 01, 2017 FINDINGS: Heart: Normal. Mediastinum/Vessels: Normal. Lungs/Pleural space: Lungs are hyperexpanded. No focal infiltrate.. Bony thorax: No acute osseous abnormality. Degenerative change. Other: IMPRESSION: No acute cardiopulmonary disease..
== END 2018-01-17 21:08 | disposition home or self-care (01) ==
LOC: ED 15:45
DX: J45.21 Mild intermittent asthma with (acute) exacerbation (principal); J06.9 Acute upper respiratory infection, unspecified; K21.9 Gastro-esophageal reflux disease without esophagitis; E78.5 Hyperlipidemia, unspecified; I10 Essential (primary) hypertension; Z79.82 Long term (current) use of aspirin; M79.7 Fibromyalgia
CPT/HCPCS: 36415; 71046; 80053; 82550; 82553; 82803; 83880; 84484; 85025; 94640; 99284; J7512

== ENCOUNTER 2018-06-28 00:31 | Emergency (ER) | payer MEDICARE ==
[2018-06-28 01:09] LABS: Basophils # (Auto) 0.1 K/mm3 (0.0-0.1); Basophils % (Auto) 0.7 % (0.0-1.8); Eosinophils # (Auto) 0.1 K/mm3 (0.0-0.4); Eosinophils % (Auto) 0.8 % (0.0-4.3); Hematocrit 44.4 % (30.3-42.9); Hemoglobin 14.7 gm/dl (10.1-14.3); Lymphocytes # (Auto) 2.4 K/mm3 (1.2-5.4); Lymphocytes % (Auto) 31.7 % (13.4-35.0); Mean Corpuscular HGB Conc 33 % (30-34); Mean Corpuscular Hemoglobin 32 pg (28-32); Mean Corpuscular Volume 97 fl (79-97); Monocytes # (Auto) 0.7 K/mm3 (0.0-0.8); Monocytes % (Auto) 9.6 % (0.0-7.3); Platelet Count 279 K/mm3 (140-440); Red Blood Count 4.58 M/mm3 (3.65-5.03); Red Cell Distribution Width 13.8 % (13.2-15.2)
[2018-06-28 01:26] LABS: Alanine Aminotransferase 16 units/L (7-56); Albumin 4.4 g/dL (3.9-5); BUN/Creatinine Ratio 13; Blood Urea Nitrogen 9 mg/dL (7-17); Calcium 9.8 mg/dL (8.4-10.2); Hemolysis Index 0
[2018-06-28 02:34] LABS: Bilirubin,Urine NEG (Negative); Blood,Urine NEG (Negative); Color,Urine Yellow (Yellow); Mucus,Urine FEW /HPF; Protein,Urine <15 mg/dL mg/dL (Negative)
[2018-06-28] MEDS ORDERED: SUBLIMAZE IV ONE (06:19)
[2018-06-28] MEDS ORDERED: TORADOL IV ONE (06:19)
[2018-06-28] MEDS ORDERED: NACL 0.9% 1000 ML 1,000 ML IV ONE (06:20)
--- NOTE | 2018-06-28 06:20 | Emergency Department Report ---
ED General Adult HPI - General Chief complaint: Abdominal Pain Stated complaint: ABD PAIN RUN DOWN THE LEG Time Seen by Provider: 06/28/18 06:05 Source: patient, RN notes reviewed, old records reviewed Mode of arrival: Ambulatory Limitations: Physical Limitation - History of Present Illness Initial comments: This is a 63-year-old female. The patient is not known to this provider previously. Her primary care doctor is Dr. Nunes. Past medical history includes hypertension, high cholesterol, GERD, fibromyalgia , morbid obesity, surgical history includes hysterectomy, gallbladder surgery," surgery in the 1970s." She is not quite sure what surgery she had in the 70s. The patient presents to the ER today with a complaint of nontraumatic right groin pain and subjective swelling for the past 1-1/2 weeks. The pain is sharp , and radiates down her right leg, and occasionally to her back. She endorses nausea and vomiting which has since resolved, denies extremity weakness, numbness, bladder or bowel retention/incontinence. The pain is so sharp that she has trouble walking with a normal gait. She denies headache, neck pain, chest pain, upper abdominal pain, shortness of breath. -: Gradual Location: right, lower extremity Radiation: extremity Quality: aching Consistency: intermittent Improves with: rest Worsens with: movement Associated Symptoms: nausea/vomiting. denies: confusion, chest pain, cough, diaphoresis, fever/chills, headaches, loss of appetite, malaise, rash, seizure, shortness of breath, syncope, weakness - Related Data Home Medications Medication Instructions Recorded Confirmed Last Taken Albuterol Sulfate [Albuterol 0.63% 1 spray INHALATION PRN PRN 03/01/14 05/06/15 1 Month Ago NEBS] ~06/19/16 1 puff Beclomethasone Dipropionat(Nf) 2 puff INHALATION DAILY 03/01/14 05/06/15 1 Month Ago [Qvar 40MCG] ~06/19/16 2 puff Loratadine [Claritin] 10 mg PO DAILY 11/04/14 05/06/15 1 Day Ago ~07/18/16 10 mg Previous Rx's Medication Instructions Recorded Last Taken Type Aspirin [Aspirin BABY CHEW TAB] 81 mg PO QDAY #30 tab.chew 07/21/16 Unknown Rx Ranolazine ER [Ranexa ER] 500 mg PO BID #60 tablet 10/29/16 Unknown Rx Simvastatin [Zocor TAB] 40 mg PO QHS #60 tablet 07/21/16 Unknown Rx amLODIPine [Norvasc] 10 mg PO DAILY #30 tab 07/21/16 Unknown Rx hydroCHLOROthiazide [HCTZ] 25 mg PO DAILY #30 tablet 07/21/16 Unknown Rx Pantoprazole [Protonix TAB] 20 mg PO QDAY #30 tablet.dr 02/02/17 Unknown Rx Ranitidine HCl [Heartburn Relief] 150 mg PO DAILY #30 tablet 02/02/17 Unknown Rx Meclizine [Antivert] 25 mg PO TID PRN #15 tablet 12/11/17 Unknown Rx hydroCHLOROthiazide [Hctz] 12.5 mg PO QDAY #15 capsule 12/11/17 Unknown Rx Cetirizine HCl [ZyrTEC] 10 mg PO QAM 14 Days #14 capsule 01/17/18 Unknown Rx Doxycycline [Vibramycin CAP] 100 mg PO Q12HR 10 Days #20 capsule 01/17/18 Unknown Rx Fluticasone [Flonase] 1 spray NS QDAY 14 Days #1 bottle 01/17/18 Unknown Rx predniSONE [Prednisone] 50 mg PO QAM 5 Days #5 tablet 01/17/18 Unknown Rx Acetaminophen [Tylenol Arthritis] 650 mg PO Q6HR PRN #30 tablet.er 06/28/18 Unknown Rx Ibuprofen [Motrin] 600 mg PO Q8H PRN #30 tablet 06/28/18 Unknown Rx Allergies Allergy/AdvReac Type Severity Reaction Status Date / Time No Known Allergies Allergy Verified 11/18/13 16:36 ED Review of Systems ROS: Stated complaint: ABD PAIN RUN DOWN THE LEG Other details as noted in HPI Comment: All other systems reviewed and negative ED Past Medical Hx - Past Medical History Hx Hypertension: Yes (on Amlodipine and HCTZ) Hx GERD: Yes Hx Arthritis: Yes Hx Asthma: Yes (SEASONAL ) Additional medical history: fibro-myalgia - Surgical History Hx Cholecystectomy: Yes Hx Appendectomy: Yes (1971) - Social History Smoking Status: Never Smoker Substance Use Type: Alcohol - Medications Home Medications: Home Medications Medication Instructions Recorded Confirmed Last Taken Type Albuterol Sulfate [Albuterol 0.63% 1 spray INHALATION PRN PRN 03/01/14 05/06/15 1 Month Ago History NEBS] ~06/19/16 1 puff Beclomethasone Dipropionat(Nf) 2 puff INHALATION DAILY 03/01/14 05/06/15 1 Month Ago History [Qvar 40MCG] ~06/19/16 2 puff Loratadine [Claritin] 10 mg PO DAILY 11/04/14 05/06/15 1 Day Ago History ~07/18/16 10 mg Aspirin [Aspirin BABY CHEW TAB] 81 mg PO QDAY #30 tab.chew 07/21/16 Unknown Rx Ranolazine ER [Ranexa ER] 500 mg PO BID #60 tablet 07/21/16 Unknown Rx Simvastatin [Zocor TAB] 40 mg PO QHS #60 tablet 07/21/16 Unknown Rx amLODIPine [Norvasc] 10 mg PO DAILY #30 tab 07/21/16 Unknown Rx hydroCHLOROthiazide [HCTZ] 25 mg PO DAILY #30 tablet 07/21/16 Unknown Rx Pantoprazole [Protonix TAB] 20 mg PO QDAY #30 tablet.dr 02/02/17 Unknown Rx Ranitidine HCl [Heartburn Relief] 150 mg PO DAILY #30 tablet 02/02/17 Unknown Rx Meclizine [Antivert] 25 mg PO TID PRN #15 tablet 12/11/17 Unknown Rx hydroCHLOROthiazide [Hctz] 12.5 mg PO QDAY #15 capsule 12/11/17 Unknown Rx Cetirizine HCl [ZyrTEC] 10 mg PO QAM 14 Days #14 capsule 01/17/18 Unknown Rx Doxycycline [Vibramycin CAP] 100 mg PO Q12HR 10 Days #20 capsule 01/17/18 Unknown Rx Fluticasone [Flonase] 1 spray NS QDAY 14 Days #1 bottle 01/17/18 Unknown Rx predniSONE [Prednisone] 50 mg PO QAM 5 Days #5 tablet 01/17/18 Unknown Rx Acetaminophen [Tylenol Arthritis] 650 mg PO Q6HR PRN #30 tablet.er 06/28/18 Unknown Rx Ibuprofen [Motrin] 600 mg PO Q8H PRN #30 tablet 06/28/18 Unknown Rx ED Physical Exam - General Limitations: Physical Limitation General appearance: alert, in no apparent distress, obese - Head Head exam: Present: atraumatic, normocephalic - Eye Eye exam: Present: normal appearance - ENT ENT exam: Present: normal exam, normal orophraynx, mucous membranes moist, normal external ear exam - Neck Neck exam: Present: normal inspection, full ROM. Absent: tenderness, meningismus - Respiratory Respiratory exam: Present: normal lung sounds bilaterally. Absent: respiratory distress - Cardiovascular Cardiovascular Exam: Present: regular rate, normal rhythm, normal heart sounds. Absent: systolic murmur, diastolic murmur, rubs, gallop - GI/Abdominal GI/Abdominal exam: Present: soft, normal bowel sounds. Absent: distended, tenderness, guarding, rebound, rigid, pulsatile mass - Extremities Exam Extremities exam: Present: normal inspection, full ROM, tenderness (there is reproducible right groin and right inguinal tenderness. There is no obvious hernia. There is no redness, pus or streaking. Pain increases with active, passive range of motion. Chaperoned by nurse JOSE WANG), normal capillary refill, other (2+ pulses noted in the bilateral upper, lower extremities. Compartments soft. No long bony tenderness. The pelvis is stable.). Absent: pedal edema, joint swelling, calf tenderness - Back Exam Back exam: Present: normal inspection, full ROM. Absent: tenderness, CVA tenderness (R), paraspinal tenderness, vertebral tenderness - Neurological Exam Neurological exam: Present: alert, oriented X3, CN II-XII intact, abnormal gait (patient walks with a slight limp, but is able to weight-bear.), other (2+ pulses noted in the bilateral upper, lower extremities. Compartments soft. No long bony tenderness. The pelvis is stable.). Absent: motor sensory deficit ( sensation is intact to light touch, pinprick, proprioception and the bilateral lower extremities) - Psychiatric Psychiatric exam: Present: normal affect, normal mood - Skin Skin exam: Present: warm, dry, intact, normal color. Absent: rash ED Course Vital Signs 06/28/18 06/28/18 06/28/18 00:38 06:20 06:22 Temperature 97.9 F 97.7 F Pulse Rate 62 60 Respiratory 16 16 Rate Blood Pressure 171/73 Blood Pressure 131/85 [Left] O2 Sat by Pulse 98 99 99 Oximetry 06/28/18 06/28/18 06/28/18 06:30 07:00 07:58 Temperature 97.8 F Pulse Rate 52 L Respiratory 18 Rate Blood Pressure 131/85 183/84 Blood Pressure 171/78 [Left] O2 Sat by Pulse 96 94 Oximetry - Reevaluation(s) Reevaluation #1: 06/28/18 07:28 Differential diagnosis, including but not limited to: Muscular pain, muscular strain, inguinal hernia, myositis, neuropathy Assessment and plan: 63-year-old female with right inguinal pain, reported swelling, pain with active, passive range of motion, has appropriate strength and sensation in the lower extremities. Laboratory studies thus far unremarkable, physical exam not consistent with epidural compression syndrome. Patient's pain will be treated, we will obtain a CT scan of the abdomen and pelvis, and we will reassess. Soft compartments, equal pulses in the upper, lower extremities, and no midline back tenderness, no new complaint of back pain. Reevaluation #2: 06/28/18 08:14 The patient feels much improved. Her gait is remarkably improved. She reports near complete resolution of her symptoms. CT scan of the abdomen and pelvis demonstrates no acute surgical condition that would require emergent intervention. The patient is medically stable for discharge at this point in time. ED Medical Decision Making - Lab Data Result diagrams: 06/28/18 00:56 06/28/18 00:56 Vital Signs 06/28/18 06/28/18 06/28/18 00:38 06:20 06:22 Temperature 97.9 F 97.7 F Pulse Rate 62 60 Respiratory 16 16 Rate Blood Pressure 171/73 Blood Pressure 131/85 [Left] O2 Sat by Pulse 98 99 99 Oximetry 06/28/18 06/28/18 06:30 07:00 Temperature Pulse Rate Respiratory Rate Blood Pressure 131/85 183/84 Blood Pressure [Left] O2 Sat by Pulse 96 94 Oximetry Lab Results 06/28/18 06/28/18 06/28/18 Range/Units 00:56 00:56 00:56 WBC 7.5 (4.5-11.0) K/mm3 RBC 4.58 (3.65-5.03) M/mm3 Hgb 14.7 H (10.1-14.3) gm/dl Hct 44.4 H (30.3-42.9) % MCV 97 (79-97) fl MCH 32 (28-32) pg MCHC 33 (30-34) % RDW 13.8 (13.2-15.2) % Plt Count 279 (140-440) K/mm3 Lymph % (Auto) 31.7 (13.4-35.0) % Castro % (Auto) 9.6 H (0.0-7.3) % Eos % (Auto) 0.8 (0.0-4.3) % Baso % (Auto) 0.7 (0.0-1.8) % Lymph # 2.4 (1.2-5.4) K/mm3 Castro # 0.7 (0.0-0.8) K/mm3 Eos # 0.1 (0.0-0.4) K/mm3 Baso # 0.1 (0.0-0.1) K/mm3 Seg Neutrophils % 57.2 (40.0-70.0) % Seg Neutrophils # 4.3 (1.8-7.7) K/mm3 Sodium 140 (137-145) mmol/L Potassium 4.4 (3.6-5.0) mmol/L Chloride 102.4 (98-107) mmol/L Carbon Dioxide 27 (22-30) mmol/L Anion Gap 15 mmol/L BUN 9 (7-17) mg/dL Creatinine 0.7 (0.7-1.2) mg/dL Estimated GFR > 60 ml/min BUN/Creatinine Ratio 13 % Glucose 101 H (65-100) mg/dL Calcium 9.8 (8.4-10.2) mg/dL Total Bilirubin 0.40 (0.1-1.2) mg/dL AST 20 (5-40) units/L ALT 16 (7-56) units/L Alkaline Phosphatase 67 (35-129) units/L Total Creatine Kinase 101 (30-135) units/L Total Protein 8.9 H (6.3-8.2) g/dL Albumin 4.4 (3.9-5) g/dL Albumin/Globulin Ratio 1.0 % Urine Color (Yellow) Urine Turbidity (Clear) Urine pH (5.0-7.0) Ur Specific [place] (1.003-1.030) Urine Protein (Negative) mg/dL Urine Glucose (UA) (Negative) mg/dL Urine Ketones (Negative) mg/dL Urine Blood (Negative) Urine Nitrite (Negative) Urine Bilirubin (Negative) Urine Urobilinogen (<2.0) mg/dL Ur Leukocyte Esterase (Negative) Urine WBC (Auto) (0.0-6.0) /HPF Urine RBC (Auto) (0.0-6.0) /HPF U Epithel Cells (Auto) (0-13.0) /HPF Urine Mucus /HPF 06/28/18 Range/Units 01:47 WBC (4.5-11.0) K/mm3 RBC (3.65-5.03) M/mm3 Hgb (10.1-14.3) gm/dl Hct (30.3-42.9) % MCV (79-97) fl MCH (28-32) pg MCHC (30-34) % RDW (13.2-15.2) % Plt Count (140-440) K/mm3 Lymph % (Auto) (13.4-35.0) % Castro % (Auto) (0.0-7.3) % Eos % (Auto) (0.0-4.3) % Baso % (Auto) (0.0-1.8) % Lymph # (1.2-5.4) K/mm3 Castro # (0.0-0.8) K/mm3 Eos # (0.0-0.4) K/mm3 Baso # (0.0-0.1) K/mm3 Seg Neutrophils % (40.0-70.0) % Seg Neutrophils # (1.8-7.7) K/mm3 Sodium (137-145) mmol/L Potassium (3.6-5.0) mmol/L Chloride (98-107) mmol/L Carbon Dioxide (22-30) mmol/L Anion Gap mmol/L BUN (7-17) mg/dL Creatinine (0.7-1.2) mg/dL Estimated GFR ml/min BUN/Creatinine Ratio % Glucose (65-100) mg/dL Calcium (8.4-10.2) mg/dL Total Bilirubin (0.1-1.2) mg/dL AST (5-40) units/L ALT (7-56) units/L Alkaline Phosphatase (35-129) units/L Total Creatine Kinase (30-135) units/L Total Protein (6.3-8.2) g/dL Albumin (3.9-5) g/dL Albumin/Globulin Ratio % Urine Color Yellow (Yellow) Urine Turbidity Clear (Clear) Urine pH 6.0 (5.0-7.0) Ur Specific [place] 1.019 (1.003-1.030) Urine Protein <15 mg/dl (Negative) mg/dL Urine Glucose (UA) Neg (Negative) mg/dL Urine Ketones Neg (Negative) mg/dL Urine Blood Neg (Negative) Urine Nitrite Neg (Negative) Urine Bilirubin Neg (Negative) Urine Urobilinogen 4.0 (<2.0) mg/dL Ur Leukocyte Esterase Neg (Negative) Urine WBC (Auto) 2.0 (0.0-6.0) /HPF Urine RBC (Auto) 2.0 (0.0-6.0) /HPF U Epithel Cells (Auto) < 1.0 (0-13.0) /HPF Urine Mucus Few /HPF - Radiology Data Radiology results: pending Critical care attestation.: If time is entered above; I have spent that time in minutes in the direct care of this critically ill patient, excluding procedure time. ED Disposition Clinical Impression: Right groin pain Disposition: DC-01 TO HOME OR SELFCARE Is pt being admited?: No Does the pt Need Aspirin: No Condition: Stable Instructions: Abdominal Pain (ED) Additional Instructions: Drink 6-8 cups of water per day for the next week. Do not take metformin, which is a diabetic medication, this patient is taking it, for the next 48 hours. Continue current outpatient medications otherwise. Take the pain medications as needed/directed. Rest, and avoid heavy lifting and avoid strenuous physical activity. Participate in range of motion and physical activities as tolerated. Pain most likely coming from muscle/connective tissue in the right groin. Follow-up with the primary care doctor within the next 7- 14 days. Return to the ER right away with new pain, worsened pain, migration of pain, projectile vomiting, change in mental status, confusion, inability to tolerate liquid feedings. Referrals: KHARI MARIANO NP-C [Primary Care Provider] - 3-5 Days
--- NOTE | 2018-06-28 07:56 | Cat Scan Report ---
FINAL REPORT PROCEDURE: CT ABDOMEN PELVIS W CON TECHNIQUE: Computerized axial tomography of the abdomen and pelvis was performed after the IV injection of iodinated nonionic contrast. HISTORY: right groin pain COMPARISON: No prior studies are available for comparison. FINDINGS: Visualized lower thorax: No significant abnormality. Liver: There is fatty infiltration of the liver. There is no mass.. Spleen: Normal size and attenuation. Gallbladder and biliary system: There has been a cholecystectomy.. Pancreas: Normal. Adrenals: Normal. Kidneys: Normal. GI tract: There is no bowel obstruction, colitis or enteritis. The appendix is not visible.. Lymph nodes and mesentery: Normal. Vasculature: Normal. Bladder: Normal. Reproductive organs: There has been a hysterectomy. Peritoneum: There is no ascites or free air, abscess or adenopathy.. Musculoskeletal structures: No significant abnormality. Other: None. IMPRESSION: There is fatty infiltration of the liver. There is no mass.. There has been a cholecystectomy.. There is no bowel obstruction, colitis or enteritis. The appendix is not visible.. There has been a hysterectomy. There is no ascites or free air, abscess or adenopathy..
[2018-06-28 07:59] VITALS: BP 171/78
== END 2018-06-28 08:42 | disposition home or self-care (01) ==
LOC: ED 00:31
DX: R10.31 Right lower quadrant pain (principal); R11.2 Nausea with vomiting, unspecified; R22.2 Localized swelling, mass and lump, trunk; I10 Essential (primary) hypertension; K21.9 Gastro-esophageal reflux disease without esophagitis; M19.90 Unspecified osteoarthritis, unspecified site; Z90.49 Acquired absence of other specified parts of digestive tract; Z79.899 Other long term (current) drug therapy
CPT/HCPCS: 36415; 74177; 80053; 81001; 82550; 85025; 96361; 96374; 96375; 99284; J1885; J3010; J7030; Q9967